=== PATIENT | male | born 1980 | race Two or more races ===

== ENCOUNTER 2024-08-23 07:37 | Inpatient (IN) | payer OTHER ==
[~2024-08-23] VITALS: Ht 185.4 cm; Wt 102.2 kg
[2024-08-23] MEDS: ceFAZolin 1GM/50ML 50 ML IV SCH (06:00)
[~2024-08-23 07:37] MED LIST: HYDR-4798 PO; KETO10TA PO
[2024-08-23] MEDS ORDERED: fentaNYL CITRATE 100 MCG/2 ML VL ONE (08:01)
[2024-08-23] MEDS ORDERED: SODIUM CHLORIDE LOCK 20 ML ONE (08:01)
[2024-08-23] MEDS ORDERED: DexAMETHasone SOD PHOS 10MG/1ML VIAL INJ ONE (08:01)
[2024-08-23] MEDS ORDERED: PROPOFOL 10 MG/ML 20 ML IV ONE (08:01)
[2024-08-23] MEDS ORDERED: LIDOCAINE HCL 2% TOP JELLY 5ML TOP ONE (08:01)
[2024-08-23] MEDS ORDERED: ONDANSETRON HCL 4 MG/2 ML VIAL ONE (08:01)
[2024-08-23] MEDS ORDERED: HYDROmorphone HCL 2 MG/ML VL/or syr ONE (08:01)
[2024-08-23] MEDS ORDERED: LIDOCAINE 1% INJ PF 5ML AMP ONE (08:01)
[2024-08-23] MEDS ORDERED: MIDAZOLAM HCL 2MG/2ML 2ml VIAL (1mg/ml) ONE ×2 (08:01→09:45)
--- NOTE | 2024-08-23 08:14 | ED.PDOC ---
Musculoskeletal HPI Comments 44-year-old male complaining of left ankle pain dislocation. Patient states he dislocated and fractures ankle on giving. in [place]. Was seen by Dr. Pickard at outpatient office. Was seen last week at Dr. Dooley's office and advised to come into the emergency department today for admission to have surgery. Patient will had preop labs in physical done last week Friday. Patient did pre-surgical bathing and has been NPO since midnight last night. Dr. Pickard made aware. Chief Complaint: Lower Extremity Time Seen by MD: 07:44 Primary Care Provider: NONE Reviewed Notes: Nurses Notes Allergies: Coded Allergies: NO KNOWN ALLERGIES (Unverified , 08/20/24) Home Meds Reported Medications Ketorolac Tromethamine (Ketorolac Tromethamine) 10 Mg Tab, 1 TAB PO TID, #15 TAB 08/20/24 Hydrocodone-Acetaminophen (Hydrocodone Bitartrate/AC 10-325 mg) 1 Tab Tab, 1 TAB PO, TAB 08/20/24 Information Source: Patient Mode of Arrival: Ambulatory Location: Left Extremity Location: Ankle Past Medical History PAST MEDICAL HISTORY: Denies Surgical History: Denies all surgeries Constitutional: denies: chills, diaphoresis, fatigue, fever, malaise, sweats, weakness, others EENTM: denies: blurred vision, double vision, ear bleeding, ear discharge, ear drainage, ear pain, ear ringing, eye pain, eye redness, hearing loss, mouth pain, mouth swelling, nasal discharge, nose bleeding, nose congestion, nose pain, photophobia, tearing, throat pain, throat swelling, voice changes, others Respiratory: denies: cough, hemoptysis, orthopnea, SOB at rest, shortness of breath, SOB with excertion, stridor, wheezing, others Cardiovascular: denies: chest pain, dizzy spells, diaphoresis, Dyspnea on exertion, edema, irregular heart beat, left arm pain, lightheadedness, palpitations, PND, syncope, others Gastrointestinal: denies: abdomen distended, abdominal pain, blood streaked bowels, constipated, diarrhea, dysphagia, difficulty swallowing, hematemesis, melena, nausea, poor appetite, poor fluid intake, rectal bleeding, rectal pain, vomiting, others Genitourinary: denies: burning, dysuria, flank pain, frequency, hematuria, incontinence, penile discharge, penile sore, pain, testicle pain, testicle swelling, urgency, others Neurological: denies: dizziness, fainting, headache, left sided numbness, left sided weakness, numbness, paresthesia, pre-existing deficit, right sided numbness, right sided weakness, seizure, speech problems, tingling, tremors, weakness, others Musculoskeletal: denies: back pain, gout, joint pain, joint swelling, muscle pain, muscle stiffness, neck pain, others Integumetry: denies: bruises, change in color, change in hair/nails, dryness, laceration, lesions, lumps, rash, wounds, others Allergic/Immunocompromised: denies: Difficulty Healing, Frequent Infections, Hives, Itching, others Hematologic/Lymphatic: denies: anemia, blood clots, easy bleeding, easy bruising, swollen glands, others Physical Exam General Appearance: No Apparent Distress, Normal HEENT: NOT DONE Neck: NOT DONE Respiratory: Chest Non-Tender, Lungs Clear, No Accessory Muscle Use, No Respiratory Distress, Normal Breath Sounds Cardiovascular: No Edema, No JVD, No Murmur, No Gallop, Normal Peripheral Pulses, Regular Rate/Rhythm Breast Exam: Deferred Gastrointestinal: NOT DONE Genitalia: Deferred Pelvic: Deferred Rectal: Deferred Extremities: No calf tenderness, No pedal edema Musculoskeletal : Apperance: Normal Neurologic: Alert, booster pump operator II-XII nml as Tested, No Motor Deficits, Normal Affect, Normal Mood, No Sensory Deficits Cerebellar Function: Normal Reflexes: Normal Skin: Dry, Normal Color, Warm Lymphatic: No Adenopathy Was a procedure done? Was a procedure done?: No Differential Diagnosis EXT Differential Diagnosis: Fracture, Sprain, Dislocation X-Ray, Labs, Meds, VS Vital Signs Date Time Temp Pulse Resp B/P (MAP) Pulse Ox O2 Delivery O2 Flow Rate FiO2 08/23/24 07:54 77 16 95 Room Air 08/23/24 07:54 96.8 77 16 94/61 (72) 95 96.8 08/23/24 07:44 96.8 77 16 94/61 (72) 95 X-Ray, Labs, Meds, VS Comment Laboratory: Labs reviewed and interpreted by this provider. No significant abnormalities noted. Patient has prior medical visits reviewed. Med reconciliation performed Vital signs reviewed Time of 1ST Reevaluation: 08:14 Reevaluation 1ST: Improved Patient Education/Counseling: Diagnosis, Treatment Family Education/Counseling: Diagnosis, Treatment Departure 1 Departure Time of Disposition: 08:14 Impression: Primary Impression: Closed left ankle fracture Qualified Codes: S82.892A - Other fracture of left lower leg, initial encounter for closed fracture Disposition: ADMITTED INPATIENT Condition: Fair Discharged With: Self Critical Care Note Critical Care Time?: No Stability Stability form required: No Heart Score Heart Score: Heart Score Response (Comments) Value History N/A 0 EKG N/A 0 Age N/A 0 Risk Factors N/A 0 Troponin N/A 0 Total 0 TRIPP BATISTAP Aug 23, 2024 08:14
--- NOTE | 2024-08-23 08:49 | DVH ---
XY L ANKLE 2 VIEW XRAY, INDICATION: fracture TECHNICAL DATA:Frontal , oblique and lateral views were obtained of the left ankle. COMPARISON: None FINDINGS: Displaced fracture of the distal fibula. Lateral dislocation of the tibio-talar joint. Soft tissues a re swollen. IMPRESSION: Displaced fracture of the distal fibula. Lateral dislocation of the tibio-talar joint.
[2024-08-23] MEDS: BUPIVACAINE 0.5% P/F INJ 10 ML VIAL ONE (08:58)
[2024-08-23] MEDS ORDERED: HYDROcodone-ACET 5/325MG TAB PO PRN (09:00)
[2024-08-23] MEDS ORDERED: DOCUSATE SOD 100 MG CAP PO PRN (09:00)
[2024-08-23] MEDS ORDERED: ACETAMINOPHEN 325 MG TAB PO PRN (09:00)
[2024-08-23] MEDS ORDERED: ONDANSETRON HCL 4 MG/2 ML VIAL IV PRN (09:00)
--- NOTE | 2024-08-23 09:09 | DVHHP2 ---
History of Present Illness Reason for Visit: Left ankle fracture History of Present Illness Dmitri Adkins is a 44YOM with no pmHx who presents to the ED for surgery for a left ankle fracture that he sustained on Thanksgiving in [place]. Patient was advised to come in for surgery and has been NPO since [place] as well as having his preop labs completed last week on Friday. Past Surgical History: None Family History: None Domestic Violence: Neg Review of Systems Constitutional: No: Fever, Chills, Sweats, Weakness, Malaise, Other Eyes: No: Pain, Vision change, Conjunctivae inflammation, Eyelid inflammation, Other, Redness ENT: No: Ear pain, Ear discharge, Nose pain, Nose discharge, Nose congestion, Mouth pain, Mouth swelling, Throat pain, Throat swelling, Other Respiratory: No: Cough, Dry, Shortness of breath, SOB with excertion, Wheezing, Hemoptysis, Pleuritic Pain, Sputum, Wheezing, Other Cardiovascular: No: Chest Pain, Palpitations, Orthopnea, Paroxysmal Noc. Dyspnea, Edema, Lt Headedness, Other Gastrointestinal: No: Nausea, Vomiting, Abdominal Pain, Diarrhea, Constipation, Melena, Hematochezia, Other Genitourinary: No Dysuria, No Frequency, No Incontinence, No Hematuria, No Retention, No Other Musculoskeletal: leg pain; No: other, neck pain, shoulder pain, arm pain, back pain, hand pain, foot pain Skin: No: Rash, Lesions, Jaundice, Bruising, Other Neurological: No: Weakness, Numbness, Incoordination, Change in speech, Confusion, Seizures, Other Other patient taken to OR Allergies: Coded Allergies: NO KNOWN ALLERGIES (Unverified , 08/20/24) Exam Vital Signs Vital Signs Date Time Temp Pulse Resp B/P (MAP) Pulse Ox O2 Delivery O2 Flow Rate FiO2 08/23/24 07:54 77 16 95 Room Air 08/23/24 07:54 96.8 94/61 (72) 96.8 Exam patient was taken to OR General Appearance: Alert, Oriented X3, Cooperative, No acute distress HEENT: Atraumatic, PERRLA, EOMI, Mucous membr. moist/pink Respiratory: Clear to auscultation, Normal air movement Cardiovascular: Regular rate, Normal S1, Normal S2, No murmurs Abdominal: Normal bowel sounds, Soft, No tenderness, No hepatospenomegaly, No masses Extremities: No clubbing, No cyanosis, Normal pulses Skin: No breakdown Neuro: Normal speech, Normal tone, Sensation intact Psych/Mental Status: Mental status NL, Mood NL Labs/Xrays XY L ANKLE 2 VIEW XRAY, INDICATION: fracture TECHNICAL DATA:Frontal , oblique and lateral views were obtained of the left ankle. COMPARISON: None FINDINGS: Displaced fracture of the distal fibula. Lateral dislocation of the tibio-talar joint. Soft tissues are swollen. IMPRESSION: Displaced fracture of the distal fibula. Lateral dislocation of the tibio-talar joint. Assessment/Plan Assessment/Plan Assessment/Plan: Left ankle fracture surgery - Dr. Mercado labs xr ankle pain mgmt antiemetics FEN/PPX npo ivf pud dvt Discussed plan of care with nurse Admit to med surg Plan discussed with: Patient My Orders Orders - LISY DALLAS Procedure Category Date Status Time Admit ADMIT 08/23/24 Verified 08:54 Code Status CODE 08/23/24 Verified 08:54 Vital Signs [facility] 08/23/24 Verified 08:54 Review Orders With [facility] 08/23/24 Verified Adm. 08:54 Sodium Chloride 0.9% [facility] 08/23/24 Verified 09:00 Lorazepam Tablet [facility] 08/23/24 Verified (Ativan Tablet) 09:00 Docusate Sodium [facility] 08/23/24 Verified Capsule (Colace 09:00 Acetaminophen Tablet [facility] 08/23/24 Verified (Tylenol Tablet) 09:00 Notify Md Of Changes [facility] 08/23/24 Verified From Base 08:54 Advance Directive [facility] 08/23/24 Verified 08:54 Basic Metabolic Panel LAB 08/24/24 Verified 04:00 Complete Blood Count LAB 08/24/24 Verified 04:00 Allergies [facility] 08/23/24 Verified 08:54 Hydrocodone-Acet [facility] 08/23/24 Verified 5/325mg Tab ([place] 09:00 Ondansetron Hcl [facility] 08/23/24 Verified (Zofran) 09:00 Morphine 2mg Iv Q4hprn [facility] 08/23/24 Verified 09:00 Date of Service: Aug 23, 2024 Billing Provider: LISY DALLAS Common Visit Codes: [id number] INP/OBS CARE (MOD) LISY DALLAS Aug 23, 2024 09:09
[2024-08-23] MEDS: ceFAZolin 2 GM/D5W100ml 100 ML IV ONE (09:54)
--- NOTE | 2024-08-23 10:06 | DVHINCON2 ---
Date of service: Aug 23, 2024 Reason for Consultation Left ankle fracture dislocation History of Present Illness 44 yo M sp mechanical fall and dislocated left ankle. Pain with adl/cant bear weight; no issues prior to this; no cp/sob/abd pain Past Medical History denies Allergies: Coded Allergies: NO KNOWN ALLERGIES (Unverified , 08/20/24) Home Meds Reported Medications Ketorolac Tromethamine (Ketorolac Tromethamine) 10 Mg Tab, 1 TAB PO TID, #15 TAB 08/20/24 Hydrocodone-Acetaminophen (Hydrocodone Bitartrate/AC 10-325 mg) 1 Tab Tab, 1 TAB PO, TAB 08/20/24 Current Medications Current Medications Medications (Trade) Dose Ordered Sig/Vinnie Route PRN Reason Start Time Stop Time Status Last Admin Sodium Chloride 1,000 ml @ 60 mls/hr [id number] IV 08/23/24 09:00 Lorazepam (Ativan Tablet) 0.5 mg Q6HP PRN PO ANXIETY 08/23/24 09:00 Docusate Sodium (Colace Capsule) 100 mg BIDPRN PRN PO FOR CONSTIPATION 08/23/24 09:00 Acetaminophen (Tylenol Tablet) 650 mg Q6HP PRN PO PAIN SCALE 1-3 OR TEMP>100.4 08/23/24 09:00 Acetaminophen/ Hydrocodone Bitart (Glen 5/325MG Tab) 1 tab Q4HP PRN PO MODERATE PAIN (4-6 PAIN SCALE) 08/23/24 09:00 Ondansetron HCl (Zofran) 4 mg Q4HP PRN IV NAUSEA / VOMITING 08/23/24 09:00 Morphine Sulfate 2 mg Q4HPRN PRN IV SEVERE PAIN (7-10 PAIN SCALE) 08/23/24 09:00 Review of Systems 10 point ROS is neg except per HPI Vital Signs Vital Signs Date Time Temp Pulse Resp B/P (MAP) Pulse Ox O2 Delivery O2 Flow Rate FiO2 08/23/24 07:54 77 16 95 Room Air 08/23/24 07:54 96.8 94/61 (72) 96.8 Physical Exam NAD LLE: +skin tenting due to dislocation +ehl/fhl foot wwp Plan/Recommendation 44 yo M sp fall with left bimalleolar ankle fracture/dislocation 1. I had a long and thorough discussion with patient regarding his condition. Questions for patient answered. Risks benefits options and alternatives di scussed in depth. Risks include but not exclusive to bleeding infection nerve injury hardware failure nonunion malunion chronic pain blood clots cardiac and pulmonary complications amputation and . Patient understands the risks and wishes to proceed with surgical intervention 2. Plan for open reduction internal fixation of left ankle fracture/dislocation with Dr. Nichole 3. NPO/IVF 4. pain control Plan discussed with: Patient UTE VÁSQUEZ MD Aug 23, 2024 10:06
[2024-08-23] MEDS: BUPIVACAINE 0.25% INJ 50ML VIAL ONE (10:25)
[2024-08-23 11:52] VITALS: PULSE 98; RESP 17; O2SAT 96
[2024-08-23] MEDS: HYDROcodone-ACET 5/325MG TAB PO PRN ×2 (14:51→20:50)
[2024-08-23] MEDS: MORPHINE SULFATE INJ 2 MG/ml SYRG IV PRN (15:09)
--- NOTE | 2024-08-23 15:23 | DVH ---
C-ARM FLUOROSCOPY: PROCEDURE: orif left ankle FLUOROSCOPY TIME: refer to operative report
--- NOTE | 2024-08-23 15:23 | DVH ---
C-ARM FLUOROSCOPY: PROCEDURE: orif left ankle FLUOROSCOPY TIME: refer to operative report
[2024-08-23 16:40] VITALS: BP 109/67; PULSE 63; RESP 17; TEMP 97.6; O2SAT 98
[2024-08-23 16:50] VITALS: BP 109/67; PULSE 63; RESP 16; TEMP 97.6; O2SAT 98
[2024-08-23 17:00] VITALS: BP 109/67; PULSE 63; RESP 17; TEMP 97.6; O2SAT 98
--- NOTE | 2024-08-23 17:21 | DVHOP ---
DATE OF SURGERY: 08/23/2024 PREOPERATIVE DIAGNOSES: Left ankle fracture dislocation and trimalleolar ankle fracture. POSTOPERATIVE DIAGNOSES: Left ankle fracture dislocation and trimalleolar ankle fracture. PROCEDURES: * Open reduction and internal fixation of trimalleolar ankle fracture. * Open reduction and internal fixation of syndesmotic widening. * Open reduction and debridement of the deltoid ligament, removal from the medial-sided joint. * Stress radiographs of the left ankle. SURGEON: Gregory Nichole M.D. CHAIRMAN OF THE BOARD: Leonardo Veras NP COMPLICATIONS: None. CONDITION: Stable to PACU. ASSESSMENT AND PLAN: The patient will be nonweightbearing on the left lower extremity, PT, OT, out of bed daily, full range of motion. SURGICAL INDICATIONS: The patient is a 44-year-old male who had an ankle fracture that was completed approximately 3 weeks ago, the day before . The patient has not had any surgical treatment. Based on these x-rays, it had been noted that the patient had significant fracture dislocation where the ankle being subluxed medially. On the entire time, the patient was educated on the pros and cons of surgical and nonsurgical treatment. We did educate the patient based on the significant subluxation of the ankle that it could be a suboptimal result short-term and long-term based on the fracture and the length of the time to repair. The patient understood the risks and benefits of surgical and nonsurgical treatment of the left lower extremity and opted for surgical treatment. DESCRIPTION OF PROCEDURE: The patient was seen in the preoperative holding. The patient had a significant talar tilt and shortening of the lateral malleolus fracture. Using fluoroscopic imaging, checked in AP and lateral x-ray, an incision was made through the skin, subcutaneous tissue down to the lateral malleolus and the fracture fragments had significant callus. Significant callus was then removed. The fracture was then brought out to the length of the best of our ability using an ITS fracture site, pinning the proximal and distal ends of the plate to the appropriate position with three 14 mm screws proximally and locking screws distally. Once that was done, compressed using traction and internal rotation using a TightRope device closing the syndesmotic location. The syndesmotic location were now closed, therefore the medial approach of the deltoid was then done with a freer to remove the deltoid and debrided the deltoid ligament from the medial joint line. Then, using a [id number] clamp and a neutral alignment of the ankle with a neutral tilt on the medial malleolus using 2 TightRope fixation devices for fracture fixation in the syndesmotic location. The syndesmosis was then closed with the appropriate level to the best we could. Once that was done, then stress radiographs of the left ankle were then done to ensure adequate reduction ____ stress radiographs were then checked on AP and lateral x-rays. Once that was done and completed in the appropriate manner, the wound was irrigated with copious amounts of saline and then closed with 0 Vicryl, 2-0 nylon. The patient was placed in a short leg splint. The patient will be nonweightbearing on the left lower extremity, PT, OT, out of bed daily. Followup in 2 weeks' time. MD NANCIE Franco/THEODORA/DOUGLAS TID: [id number] RECEIPT: [id number]
[2024-08-23 21:00] VITALS: BP 107/65; PULSE 85; RESP 17; TEMP 97.6; O2SAT 93
[2024-08-23] MEDS: LORazepam 0.5 MG TAB PO PRN (21:13)
[2024-08-23] MEDS: SODIUM CHLORIDE 0.9% 1,000 ML IV SCH (23:00)
[2024-08-24 00:58] VITALS: BP 135/76; PULSE 90; RESP 19; TEMP 98.1; O2SAT 96
[2024-08-24 05:00] VITALS: BP 132/89; PULSE 77; RESP 19; TEMP 97.6; O2SAT 97
[2024-08-24 07:13] LABS: Anion Gap 5 (5-15); Basophils # (auto) 0 10 ^3/uL (0-0.2); Basophils % (auto) 0.6 % (0.0-2.0); Carbon Dioxide 29 mmol/L (20-31); Chloride 106 mmol/L (98-107); Eosinophils # (auto) 0.5 10 ^3/uL (0-0.8); Eosinophils % (auto) 5.7 % (0.0-7.0); Hematocrit 40.2 % (41.0-53.0); Hemoglobin 13.8 g/dL (13.5-17.5); Lymphocytes # (auto) 1.9 10 ^3/uL (0.4-5.4); Lymphocytes % (auto) 22.7 % (10.0-50.0); Mean Corpuscular Hemoglobin 32.5 pg (28.0-32.0); Mean Corpuscular Hgb Conc. 34.3 g/dL (32.0-36.0); Mean Corpuscular Volume 94.7 fL (80.0-100.0); Monocytes # (auto) 0.7 10 ^3/uL (0-1.3); Monocytes % (auto) 8.2 % (0.0-12.0); Neutrophils # (auto) 5.3 10 ^3/uL (1.6-8.6); Neutrophils % (auto) 62.8 % (37.0-80.0); Nucleated Red Blood Cells % 0.1 %; Platelet Count (auto) 298 10^3/uL (140-450); Potassium 4.2 mmol/L (3.5-5.1); Red Blood Cells 4.24 10^6/uL (4.5-5.90); Red Cell Distribution Width 13.2 % (11.8-14.3); Sodium 140 mmol/L (136-145); White Blood Cell 8.4 10^3/uL (4.4-10.8)
[2024-08-24 07:15] LABS: Calcium 8.6 mg/dL (8.7-10.4)
[2024-08-24 07:19] LABS: Blood Urea Nitrogen 12 mg/dL (9-23); Glucose 99 mg/dL (74-106)
[2024-08-24] MEDS: KETOROLAC TROMETH 30 MG/ML 1ML VIAL IV ONE (07:35)
[2024-08-24 09:07] VITALS: BP 138/88; PULSE 69; RESP 17; TEMP 98; O2SAT 100
--- NOTE | 2024-08-24 12:06 | DVHPN2 ---
Reviewed: Care Plan, H&P, Labs, Medications, Previous Orders, Radiology Changes from previous H/P or p: No Changes Objective Vitals Vital Signs Date Time Temp Pulse Resp B/P (MAP) Pulse Ox O2 Delivery O2 Flow Rate FiO2 08/24/24 09:07 98.0 69 17 138/88 (105) 100 98.0 08/24/24 07:30 Room Air* 0 21 Intake/Output Intake and Output 08/24/24 07:00 Intake Total 1300 ml Output Total 1200 ml Balance 100 ml Intake Oral 1000 ml IV Total 300 ml Output Urine Total 1200 ml Medications Current Medications Medications Dose Ordered Sig/Vinnie Route Start Time Stop Time Status Last Admin Dose Admin Sodium Chloride 1,000 ml @ 60 mls/hr [id number] IV 08/23/24 09:00 08/24/24 01:40 60 MLS/HR Lorazepam 0.5 mg Q6HP PRN PO 08/23/24 09:00 08/24/24 04:43 0.5 MG Docusate Sodium 100 mg BIDPRN PRN PO 08/23/24 09:00 Acetaminophen 650 mg Q6HP PRN PO 08/23/24 09:00 Ondansetron HCl 4 mg Q4HP PRN IV 08/23/24 09:00 Morphine Sulfate 2 mg Q4HPRN PRN IV 08/23/24 09:00 08/24/24 04:44 2 MG Acetaminophen/ Hydrocodone Bitart 1 tab Q4HPRN PRN PO 08/23/24 11:30 08/23/24 14:51 1 TAB Acetaminophen/ Hydrocodone Bitart 2 tab Q4HPRN PRN PO 08/23/24 11:30 08/24/24 05:16 2 TAB Laboratory Results Laboratory Tests 08/24/24 06:11 Chemistry Test 08/24/24 06:11 Calcium Level 8.6 mg/dL (8.7-10.4) L Labs and/or images reviewed: Labs reviewed by me, Image(s) reviewed by me Assessment/Plan Assessment/Plan Left ankle trimalleolar fracture status post ORIF by Dr. Gregory Nichole: Continue pain medication Physical therapy Plan discussed with: Patient Date of Service: Aug 24, 2024 Billing Provider: QUAN WILSON MD Common Visit Codes: [id number] INP/OBS CARE(HIGH) QUAN WILSON MD Aug 24, 2024 12:06
[2024-08-24 12:49] VITALS: BP 114/69; PULSE 78; RESP 16; TEMP 97.1; O2SAT 97
[2024-08-24] MEDS: MORPHINE SULFATE 4 MG/ML SYR/VIAL IV PRN (14:20)
[2024-08-24 17:03] VITALS: BP 114/77; PULSE 75; RESP 16; TEMP 97.9; O2SAT 96
[2024-08-24 21:00] VITALS: BP 116/75; PULSE 90; RESP 20; TEMP 99.6; O2SAT 97
[2024-08-25 01:00] VITALS: BP 123/78; PULSE 78; RESP 19; TEMP 99.2; O2SAT 97
[2024-08-25 05:00] VITALS: BP 132/73; PULSE 71; RESP 18; TEMP 98.3; O2SAT 97
[2024-08-25 09:00] VITALS: BP 126/85; PULSE 76; RESP 17; TEMP 98.2; O2SAT 95
--- NOTE | 2024-08-25 09:27 | DVHPN2 ---
Reviewed: Care Plan, H&P, Labs, Medications, Previous Orders, Radiology Changes from previous H/P or p: No Changes Objective Vitals Vital Signs Date Time Temp Pulse Resp B/P (MAP) Pulse Ox O2 Delivery O2 Flow Rate FiO2 08/25/24 05:00 71 18 132/73 08/25/24 05:00 98.3 97 98.3 08/24/24 20:00 Room Air* 0 21 Intake/Output Intake and Output 08/25/24 06:59 Intake Total 2200 ml Output Total 1750 ml Balance 450 ml Intake Oral 1500 ml IV Total 700 ml Output Urine Total 1750 ml Medications Current Medications Medications Dose Ordered Sig/Vinnie Route Start Time Stop Time Status Last Admin Dose Admin Sodium Chloride 1,000 ml @ 60 mls/hr [id number] IV 08/23/24 09:00 08/24/24 18:38 60 MLS/HR Lorazepam 0.5 mg Q6HP PRN PO 08/23/24 09:00 08/24/24 04:43 0.5 MG Docusate Sodium 100 mg BIDPRN PRN PO 08/23/24 09:00 Acetaminophen 650 mg Q6HP PRN PO 08/23/24 09:00 Ondansetron HCl 4 mg Q4HP PRN IV 08/23/24 09:00 Acetaminophen/ Hydrocodone Bitart 1 tab Q4HPRN PRN PO 08/23/24 11:30 08/25/24 06:53 1 TAB Morphine Sulfate 4 mg Q6HPRN PRN IV 08/24/24 13:30 08/25/24 03:36 4 MG Laboratory Results Laboratory Tests 08/24/24 06:11 Labs and/or images reviewed: Labs reviewed by me, Image(s) reviewed by me Assessment/Plan Assessment/Plan Left ankle trimalleolar fracture status post ORIF by Dr. Gregory Nichole: Continue pain medication Physical therapy Patient feels better Continue physical therapy and pain medication Plan discussed with: Patient My Orders Orders - QUAN WILSON MD Procedure Category Date Status Time Morphine Sulfate PHA 08/24/24 In Process Injection 13:30 Date of Service: Aug 25, 2024 Billing Provider: QUAN WILSON MD Common Visit Codes: [id number] INP/OBS CARE(HIGH) QUAN WILSON MD Aug 25, 2024 09:27
--- NOTE | 2024-08-25 10:05 | DVHPN2 ---
Progress Note Date Seen: Aug 25, 2024 Medical Necessity Reason Pt with a Central, PICC or Fol: No Subjective Patient reports: No new complaints Objective vital signs Vital Sign Date Time Temp Pulse Resp B/P (MAP) Pulse Ox O2 Delivery O2 Flow Rate FiO2 08/25/24 05:00 71 18 132/73 08/25/24 05:00 98.3 97 98.3 08/24/24 20:00 Room Air* 0 21 Total Intake and Output 08/24/24 08/24/24 08/25/24 15:00 23:00 07:00 Intake Total 500 ml 1700 ml Output Total 600 ml 1150 ml Balance -100 ml 550 ml medications Current Medications Medications Dose Ordered Sig/Vinnie Route Start Time Stop Time Status Last Admin Dose Admin Sodium Chloride 1,000 ml @ 60 mls/hr [id number] IV 08/23/24 09:00 08/24/24 18:38 60 MLS/HR Lorazepam 0.5 mg Q6HP PRN PO 08/23/24 09:00 08/24/24 04:43 0.5 MG Docusate Sodium 100 mg BIDPRN PRN PO 08/23/24 09:00 Acetaminophen 650 mg Q6HP PRN PO 08/23/24 09:00 Ondansetron HCl 4 mg Q4HP PRN IV 08/23/24 09:00 Acetaminophen/ Hydrocodone Bitart 1 tab Q4HPRN PRN PO 08/23/24 11:30 08/25/24 06:53 1 TAB Morphine Sulfate 4 mg Q6HPRN PRN IV 08/24/24 13:30 08/25/24 03:36 4 MG Examination: GENERAL:Normal, MSK:Abnormal laboratory and microbiology Laboratory Tests 08/24/24 06:11 Test 08/24/24 06:11 Range/Units Serum Glucose 99 74-106 mg/dL Problem List/Assessment/Plan Problem List/Assessment/Plan Patient is a 44 year old male who is s/p ORIF left ankle POD 2 1. Pain control 2. NWB LLE 3. Continue with crutches 4. Splint to remain in place and kept clean, dry and intact until first post op visit 5. follow up on 09/07/2024 at 12:[address] Mercado 6. Prescriptions for norco 10/325 sent to preferred [facility] pharmacy Plan discussed with: Patient Date of Service: Aug 25, 2024 Billing Provider: UTE MERCADO MD Common Visit Codes: NOT BILLABLE SHANKAR FERMIN NP Aug 25, 2024 10:05
[2024-08-25 13:06] VITALS: BP 123/84; PULSE 63; RESP 18; TEMP 97.8; O2SAT 96
[2024-08-25 17:27] VITALS: BP 130/85; PULSE 71; RESP 18; TEMP 97.9; O2SAT 97
[2024-08-25 21:00] VITALS: BP 132/81; PULSE 76; RESP 17; TEMP 98.3; O2SAT 96
[2024-08-26 01:00] VITALS: BP 117/80; PULSE 67; RESP 16; TEMP 98.2; O2SAT 97
[2024-08-26 05:00] VITALS: BP 119/78; PULSE 67; RESP 17; TEMP 97.8; O2SAT 97
[2024-08-26 07:30] VITALS: PULSE 60; RESP 12; O2SAT 96
[2024-08-26 09:00] VITALS: BP 113/75; PULSE 60; RESP 12; TEMP 97.6; O2SAT 96
[2024-08-26] MEDS ORDERED: HYDR-4798 PO ×2 (10:01→11:19)
--- NOTE | 2024-08-26 10:06 | DVHPN2 ---
Reviewed: Care Plan, H&P, Labs, Medications, Previous Orders, Radiology Changes from previous H/P or p: No Changes Objective Vitals Vital Signs Date Time Temp Pulse Resp B/P (MAP) Pulse Ox O2 Delivery O2 Flow Rate FiO2 08/26/24 05:00 67 17 119/78 08/26/24 05:00 97.8 97 97.8 08/25/24 20:00 Room Air* 0 21 Intake/Output Intake and Output 08/26/24 07:00 Intake Total 2500 ml Output Total 3250 ml Balance -750 ml Intake Oral 1500 ml IV Total 1000 ml Output Urine Total 3250 ml # Bowel Movements 6 Medications Current Medications Medications Dose Ordered Sig/Vinnie Route Start Time Stop Time Status Last Admin Dose Admin Sodium Chloride 1,000 ml @ 60 mls/hr [id number] IV 08/23/24 09:00 08/26/24 06:37 60 MLS/HR Lorazepam 0.5 mg Q6HP PRN PO 08/23/24 09:00 08/24/24 04:43 0.5 MG Docusate Sodium 100 mg BIDPRN PRN PO 08/23/24 09:00 Acetaminophen 650 mg Q6HP PRN PO 08/23/24 09:00 Ondansetron HCl 4 mg Q4HP PRN IV 08/23/24 09:00 Acetaminophen/ Hydrocodone Bitart 1 tab Q4HPRN PRN PO 08/23/24 11:30 08/26/24 06:37 1 TAB Morphine Sulfate 4 mg Q6HPRN PRN IV 08/24/24 13:30 08/26/24 02:58 4 MG Laboratory Results Laboratory Tests 08/24/24 06:11 Labs and/or images reviewed: Labs reviewed by me, Image(s) reviewed by me Assessment/Plan Assessment/Plan Left ankle trimalleolar fracture status post ORIF by Dr. Gregory Nichole: Continue pain medication Physical therapy Patient feels better Continue physical therapy and pain medication Cleared for discharge by ortho Plan discussed with: Patient Date of Service: Aug 26, 2024 Billing Provider: QUAN WILSON MD Common Visit Codes: [id number] INP/OBS CARE(HIGH) QUAN WILSON MD Aug 26, 2024 10:06
--- NOTE | 2024-08-26 10:11 | DVHDS2 ---
Discharge Summary Date of Admission Aug 23, 2024 at 08:54 Date of Discharge: Aug 26, 2024 Admitting Diagnosis Left ankle fracture Wounds: ORIF left ankle fracture Labs/Diagnostic Data: Laboratory Results Test 08/24/24 06:11 White Blood Count 8.4 10^3/uL (4.4-10.8) Red Blood Count 4.24 10^6/uL (4.5-5.90) Hemoglobin 13.8 g/dL (13.5-17.5) Hematocrit 40.2 % (41.0-53.0) Mean Corpuscular Volume 94.7 fL (80.0-100.0) Mean Corpuscular Hemoglobin 32.5 pg (28.0-32.0) Mean Corpuscular Hemoglobin Concent 34.3 g/dL (32.0-36.0) Red Cell Distribution Width 13.2 % (11.8-14.3) Platelet Count 298 10^3/uL (140-450) Mean Platelet Volume 7.6 fL (6.9-10.8) Neutrophils (%) (Auto) 62.8 % (37.0-80.0) Lymphocytes (%) (Auto) 22.7 % (10.0-50.0) Monocytes (%) (Auto) 8.2 % (0.0-12.0) Eosinophils (%) (Auto) 5.7 % (0.0-7.0) Basophils (%) (Auto) 0.6 % (0.0-2.0) Neutrophils # (Auto) 5.3 10 ^3/uL (1.6-8.6) Lymphocytes # (Auto) 1.9 10 ^3/uL (0.4-5.4) Monocytes # (Auto) 0.7 10 ^3/uL (0-1.3) Eosinophils # (Auto) 0.5 10 ^3/uL (0-0.8) Basophils # (Auto) 0 10 ^3/uL (0-0.2) Nucleated Red Blood Cells 0.1 % Sodium Level 140 mmol/L (136-145) Potassium Level 4.2 mmol/L (3.5-5.1) Chloride Level 106 mmol/L (98-107) Carbon Dioxide Level 29 mmol/L (20-31) Anion Gap 5 (5-15) Blood Urea Nitrogen 12 mg/dL (9-23) Creatinine 0.92 mg/dL (0.700-1.30) Glomerular Filtration Rate Calc 105 mL/min (>90) BUN/Creatinine Ratio 13.0 (10.0-20.0) Serum Glucose 99 mg/dL (74-106) Calcium Level 8.6 mg/dL (8.7-10.4) Other Laboratory Tests 08/24/24 06:11 Brief Hx & Hospital Course: 44-year-old male sustained left ankle fracture underwent ORIF for trimalleolar left ankle fracture by Ortho Dr Haritha Nichole. Postop course uneventful cleared for discharge by ortho. Discharged home on [place] he will follow up with the orthopedic on 09-07-24. Consults/Reason for consult Orthopedic Dr. Gregory Nichole Operations or Procedures ORIF left ankle fracture Condition at Discharge: Fair Final Diagnosis/Problems List Left ankle trimalleolar fracture status post ORIF by Dr. Gregory Nichole: Discharge Disposition: Home Discharge Instruct/Medications Diet: Regular Activity: See Comment Activity comment: No Weight-bearing left lower extremity Follow Up/Referral: Keep your appointment with ortho Dr Mercado 09/07/2024 No weight-bearing left lower extremity Use crutches Medications: [place] transmitted to the pharmacy 39 (Time Taken for discharge summary 39 minutes) Discharge Statement: "Patient was advised to return to the ER or call 911 if any headaches, dizziness, shortness of breath, chest pain, abdominal pain, bleeding, fevers, or worsening of medical condition. Patient was counseled about treatment plan, medications, possible side effects, patientverbalized understanding. All questions were answered to the best of my ability. This discharge took greater then 30 minutes in planning, reviewing documentation, counseling the patient, and discussing with other team members." ASSESSMENT ASSESSMENT Hospital Course Improved Assessment Left ankle trimalleolar fracture status post ORIF by Dr. Gregory Nichole: Date of Service: Aug 26, 2024 Billing Provider: QUAN WILSON MD Common Visit Codes: 16597-WZA/OBS DISCH DAY >30min QUAN WILSON MD Aug 26, 2024 10:11
[2024-08-26 11:10] VITALS: BP 138/86; PULSE 85; RESP 17; TEMP 98.6; O2SAT 98
[2024-08-26 13:00] VITALS: BP 130/88; PULSE 82; RESP 18; TEMP 97.8; O2SAT 98
== END 2024-08-26 14:57 | disposition home or self-care (01) | DRG 313 ==
LOC: ER 07:37 → OVERFLOW 08:54 → EAST 16:45
PROVIDERS: ATTEND Family Medicine
PROC: 0QSK04Z Reposition Left Fibula with Internal Fixation Device, Open Approach (ICD-10-PCS; 2024-08-23)
PROC: 0QSH04Z Reposition Left Tibia with Internal Fixation Device, Open Approach (ICD-10-PCS; principal; 2024-08-23 09:42)
DX: S82.852A Displaced trimalleolar fracture of left lower leg, initial encounter for closed fracture (principal); Z79.899 Other long term (current) drug therapy; S82.842A Displaced bimalleolar fracture of left lower leg, initial encounter for closed fracture; W18.39XA Other fall on same level, initial encounter; Y93.89 Activity, other specified; Y92.89 Other specified places as the place of occurrence of the external cause; Y99.8 Other external cause status
CPT/HCPCS: 36415; 73600; 76000; 80048; 85025; 96365; 97110; 97116; 97163; 97530; G0378; J1100; J1885; J2250; J2405; J2704; J3490